=== PATIENT | male | born 1985 | race Caucasian/White ===

== ENCOUNTER 2016-09-03 14:49 | Emergency (ER) | payer OTHER | END 2016-09-03 17:30 | disposition home or self-care (01) | LOC: ER1 14:49 | DX: R10.9 Unspecified abdominal pain (principal); Z87.442 Personal history of urinary calculi; Z88.5 Allergy status to narcotic agent | CPT/HCPCS: 81001; 87086; 96361; 96374; 99284; J1885; J7030 ==

== ENCOUNTER 2020-05-02 18:17 | Emergency (ER) | payer OTHER ==
[2020-05-02 19:55] LABS: HEMOGLOBIN 13.6 gm/dl (14.0-17.5); RED BLOOD COUNT 4.61 M/UL (4.20-5.50); WHITE BLOOD COUNT 7.9 K/UL (4.5-11.0)
[2020-05-02 20:08] LABS: BUN/CREATININE RATIO 12 (0-10)
[2020-05-05 08:14] LABS: HBSAG SCREEN Negative (Negative); HEP A AB, IGM Negative (Negative); HEP B CORE AB, IGM Negative (Negative); HEP C VIRUS AB >11.0 (0.0-0.9)
== END 2020-05-02 23:50 | disposition home or self-care (01) ==
LOC: ER1 18:17
PROVIDERS: Family Medicine
DX: R10.11 Right upper quadrant pain (principal); R11.0 Nausea; R19.7 Diarrhea, unspecified; R94.5 Abnormal results of liver function studies; F17.200 Nicotine dependence, unspecified, uncomplicated; Z88.5 Allergy status to narcotic agent
CPT/HCPCS: 36415; 80053; 80074; 81001; 83690; 85025; 96374; 96375; 99284; J1885; J2405; Q9967

== ENCOUNTER 2020-05-20 16:36 | Emergency (ER) | payer OTHER ==
[2020-05-20 17:19] LABS: RED BLOOD COUNT 4.76 M/UL (4.20-5.50); WHITE BLOOD COUNT 8.5 K/UL (4.5-11.0)
[2020-05-20 17:35] LABS: BUN/CREATININE RATIO 9 (0-10)
[2020-05-20] MEDS ORDERED: CYCLOBENZAPRINE5 MG PO (19:55)
[2020-05-20] MEDS ORDERED: IBUPROFEN800 MG PO (19:55)
== END 2020-05-20 20:07 | disposition home or self-care (01) ==
LOC: ER1 16:36
PROVIDERS: Emergency Medicine
DX: S30.0XXA Contusion of lower back and pelvis, initial encounter (principal); S20.212A Contusion of left front wall of thorax, initial encounter; S30.1XXA Contusion of abdominal wall, initial encounter; E03.9 Hypothyroidism, unspecified; S20.224A Contusion of middle back wall of thorax, initial encounter; V09.9XXA Pedestrian injured in unspecified transport accident, initial encounter; Y92.410 Unspecified street and highway as the place of occurrence of the external cause
CPT/HCPCS: 70450; 71045; 71260; 72125; 72128; 72131; 73030; 80053; 82550; 82553; 83874; 84484; 85025; 96374; 96375; 96376; 99284; J2270; J2405; Q9967

== ENCOUNTER 2020-09-01 17:59 | Emergency (ER) | payer OTHER ==
[~2020-09-01 17:59] MED LIST: CYCLOBENZAPRINE5 MG PO; IBUPROFEN800 MG PO
[2020-09-01] MEDS ORDERED: HYDROCODON-ACE1 EAC4 PO (19:03)
[2020-09-01] MEDS ORDERED: PERCOCET 2.5-31 EACH PO (19:05)
== END 2020-09-01 19:15 | disposition home or self-care (01) ==
LOC: ER1 17:59
DX: N23 Unspecified renal colic (principal); Z87.442 Personal history of urinary calculi; Z88.6 Allergy status to analgesic agent
CPT/HCPCS: 99283

== ENCOUNTER 2020-10-24 08:08 | Emergency (ER) | payer OTHER ==
[~2020-10-24 08:08] MED LIST changes: +HYDROCODON-ACE1 EAC4 PO; +PERCOCET 2.5-31 EACH PO
[2020-10-24 08:55] LABS: HEMOGLOBIN 11.6 gm/dl (14.0-17.5); RED BLOOD COUNT 3.92 M/UL (4.20-5.50); WHITE BLOOD COUNT 5.7 K/UL (4.5-11.0)
[2020-10-24 09:19] LABS: BUN/CREATININE RATIO 10 (0-10)
[2020-10-24] MEDS ORDERED: CITRATE OF MAG296 ML PO (11:10)
== END 2020-10-24 11:20 | disposition home or self-care (01) ==
LOC: ER1 08:08
PROVIDERS: Physician Assistant
DX: K59.00 Constipation, unspecified (principal); Z88.5 Allergy status to narcotic agent; F17.290 Nicotine dependence, other tobacco product, uncomplicated
CPT/HCPCS: 80053; 81001; 83690; 85025; 99284; Q9967